=== PATIENT | male | born 1965 ===

== ENCOUNTER 2017-01-18 14:50 | Emergency (ER) | payer SELFPAY ==
[2017-01-18 14:51] VITALS: BMI 27.4
[2017-01-18 15:06] VITALS: BP 168/100; PULSE 99; RESP 20; TEMP 98.1; O2SAT 99
[2017-01-18] MEDS ORDERED: Oxycodone/Acetaminophen 5/325 mg Tab PO STA (17:31)
--- NOTE | 2017-01-18 17:31 | C.PDOC ---
History Of Present Illness 51 year old male, with a past surgical history for Appendicitis, presents to the ED with complaints of left inguinal pain for one week, that has worsened today which prompted visit. Patient reports he stands and does heavy lifting often for work. He notes pain radiates down his left leg and to his testicle. Patient denies history of kidney stones, fever, chills, dysuria, or hematuria. Time Seen by Provider: 01/18/17 17:11 Chief Complaint (Nursing): Abdominal Pain History Per: Patient History/Exam Limitations: no limitations Onset/Duration Of Symptoms: Days (1 week), Worse Since (this morning ) Current Symptoms Are (Timing): Still Present Quality Of Discomfort: "Pain" Associated Symptoms: denies: Fever, Chills, Nausea, Vomiting, Back Pain Alleviating Factors: None Recent travel outside of the [place]: No Past Medical History Reviewed: Historical Data, Nursing Documentation, Vital Signs Vital Signs: Last Vital Signs Temp 98.1 F 01/18/17 15:03 Pulse 99 H 01/18/17 15:03 Resp 20 01/18/17 15:03 BP 168/100 H 01/18/17 15:03 Pulse Ox 99 01/18/17 17:31 - Medical History PMH: HTN, Hyperlipidemia Surgical History: Appendectomy Family History: States: Unknown Family Hx - Social History Hx Alcohol Use: Yes Hx Substance Use: No - Immunization History Hx Tetanus Toxoid Vaccination: No Hx Influenza Vaccination: No Hx Pneumococcal Vaccination: No Review Of Systems Constitutional: Negative for: Fever, Chills Cardiovascular: Negative for: Chest Pain, Palpitations Respiratory: Negative for: Cough, Shortness of Breath Gastrointestinal: Negative for: Nausea, Vomiting, Abdominal Pain Genitourinary: Positive for: Other (left inguinal pain radiating to testicle and down left leg ). Negative for: Dysuria, Hematuria Physical Exam - Physical Exam Appears: Non-toxic, No Acute Distress Skin: Warm, Dry Head: Atraumatic, Normacephalic Eye(s): bilateral: Normal Inspection, PERRL, EOMI Oral Mucosa: Moist Neck: Supple Cardiovascular: Rhythm Regular, No Murmur Respiratory: No Rales, No Rhonchi, No Wheezing, Other (clear to auscultation bilaterally ) Gastrointestinal/Abdominal: Soft, No Tenderness, No Distention, No Guarding, No Rebound Male Genital: Normal Inspection, No Testicular Swelling, No Inguinal Swelling, Other (small reducible left inguinal hernia is palpable with localized tenderness ) Extremity: Normal ROM, No Tenderness Neurological/Psych: Oriented x3 ED Course And Treatment O2 Sat by Pulse Oximetry: 99 (RA) Progress Note: Patient was given Motrin and Percocet. Disposition Counseled Patient/Family Regarding: Diagnosis, Need For Followup, Rx Given - Disposition Referrals: [facility] [Outside] [facility] [Outside] Disposition: HOME/ ROUTINE Disposition Time: 17:30 Condition: GOOD Prescriptions: Acetaminophen/Codeine [Tylenol/Codeine 300 MG/30 MG] 2 tab PO Q6H #20 tab Ibuprofen [Motrin] 600 mg PO Q6 #30 tab Instructions: Inguinal Hernia (ED) Forms: [facility] (Syriac), Work Excuse Print Language: GREEK - Clinical Impression Clinical Impression: Groin pain, Inguinal hernia - Scribe Statement The provider has reviewed the documentation as recorded by the Scribsaman Silva All medical record entries made by the Scribe were at my direction and personally dictated by me. I have reviewed the chart and agree that the record accurately reflects my personal performance of the history, physical exam, medical decision making, and the department course for this patient. I have also personally directed, reviewed, and agree with the discharge instructions and disposition.
[2017-01-18] MEDS ORDERED: Oxycodone/Acetaminophen 5/325 mg Tab ONE (17:44)
== END 2017-01-18 18:05 | disposition home or self-care (01) ==
LOC: C.ER 14:50
DX: K40.90 Unilateral inguinal hernia, without obstruction or gangrene, not specified as recurrent (principal); R10.30 Lower abdominal pain, unspecified

== ENCOUNTER 2017-05-17 08:49 | Day surgery (SDC) | payer OTHER ==
[2017-05-10 08:36] VITALS: BMI 25.7
[2017-05-17] MEDS ORDERED: Midazolam 2 MG/2 ML VIAL ONE (10:51)
[2017-05-17] MEDS ORDERED: Propofol 10 mg/ml Inj (20 ML) ONE (10:52)
[2017-05-17] MEDS ORDERED: Phenylephrine 10 mg/ml Inj ONE (10:53)
[2017-05-17] MEDS ORDERED: cefOXitin IV 2 gm in Dextrose 2 GM/50 ML BAG IVPB ONE (10:57)
[2017-05-17] MEDS ORDERED: ceFAZolin IV 2 gm in Dextrose 2 GM/50 ML BAG IVPB ONE (11:03)
[2017-05-17] MEDS ORDERED: Bupivacaine HCl 0.25% PF (10 ml) Inj ONE (11:07)
[2017-05-17] MEDS ORDERED: Lidocaine/Epinephrine 1% 1:100000 10 ML IJ ONE (11:08)
[2017-05-17] MEDS ORDERED: Neostigmine Methylsulfate 3mg/3ml Syringe IV ONE (12:49)
--- NOTE | 2017-05-17 13:17 | PCM.SURG1 ---
Surgeon's Initial Post Op Note - Surgeon's Notes Surgeon: Myah Floor Representative: PGY4, Nadir MS3 Type of Anesthesia: General Endo, Local Pre-Operative Diagnosis: L inguinal Hernia Operative Findings: see op note Post-Operative Diagnosis: Direct L inguinal Hernia Operation Performed: Laparoscopic L inguinal Hernia with mesh Specimen/Specimens Removed: N/A Estimated Blood Loss: EBL {In ML}: 10 Blood Products Given: N/A Drains Used: No Drains Post-Op Condition: Good Date of Surgery/Procedure: 05/17/17 Time of Surgery/Procedure: 11:00
[2017-05-17] MEDS ORDERED: Oxycodone/Acetaminophen 5/325 mg Tab PO ONE (13:30)
[2017-05-17] MEDS: HYDROmorphone 0.5 mg/0.5 ml ISec IVP PRN ×2 (13:35→14:48)
[2017-05-17] MEDS ORDERED: HYDROmorphone 1 mg/ml ISec ONE (14:50)
[2017-05-17 15:01] VITALS: RESP 16
[2017-05-17 16:25] VITALS: TEMP 97.3
[2017-05-17 17:21] VITALS: BP 146/83; PULSE 109; O2SAT 96
--- NOTE | 2017-05-18 07:06 | OP ---
PROCEDURE DATE: 05/17/2017. PREOPERATIVE DIAGNOSIS: Left inguinal hernia. POSTOPERATIVE DIAGNOSIS: Left direct inguinal hernia. PROCEDURE DONE: Laparoscopic left direct inguinal hernia repair with mesh. SURGEON: Campbell Glasgow MD. FIRE SPRINKLER INSPECTOR: Gil Padron, PGY-4 resident. TYPE OF ANESTHESIA: General endotracheal tube anesthesia. ESTIMATED BLOOD LOSS: Around 10 mL. DRAINS: None. PATHOLOGY: None. COMPLICATIONS: None. INTRAOPERATIVE FINDINGS: The patient with left direct inguinal hernia. DESCRIPTION OF PROCEDURE: On intraoperative steps, this 51-year-old male was diagnosed with left inguinal hernia. The patient was consented for the laparoscopic left inguinal hernia repair with mesh, brought to the OR, placed supine on the operating table. After induction of the anesthesia, the abdomen was prepped and draped in usual sterile fashion. The Bush catheter was placed and the infraumbilical transverse incision was made after incising the skin and subcutaneous tissue and the anterior rectus sheath, the retrorectus dissection was done. The balloon Spacemaker was placed and the balloon was inflated to do the preperitoneal dissection. The Pneumo was created into the preperitoneal space and another two, 5-mm port was placed in the suprapubic region as well as in between the suprapubic and umbilical port site. Now, the grasper and dissector was introduced, and first medial dissection was done in space of Retzius laterally to the lateral abdominal wall and the peritoneal sac was identified. The patient had a direct hernia and the empty sac was also dissected free and hernial content was reduced back. Now inferior peritoneal dissection was done up to the vas deferens as well as the pelvic ring and the empty sac was everted and it was tacked with a tacker and left anatomical mesh was placed. After proper placement of the left anatomical mesh, the Pneumo was deflated and umbilical port as well as two 5-mm port was taken out and umbilical port site was closed in 2 layers, the fascia with 0 Vicryl, subcu with 2-0 Vicryl, skin with 4-0 Monocryl and the 5-mm port was closed with 4-0 Monocryl and dry sterile dressing was applied. The patient tolerated the procedure well. Count of the instruments and gauze was correct. There was no apparent complication. Campbell Glasgow MD
== END 2017-05-17 17:10 | disposition home or self-care (01) ==
LOC: C.SDS 08:49
PROVIDERS: ATTEND Surgery Surgical Critical Care
DX: K40.90 Unilateral inguinal hernia, without obstruction or gangrene, not specified as recurrent (principal); I10 Essential (primary) hypertension
CPT/HCPCS: 49650; J0690; J1170; J2250; J2370; J2405; J2704; J2710; J3010

== ENCOUNTER 2018-01-21 20:05 | Emergency (ER) | payer OTHER ==
[2018-01-21 20:05] VITALS: BMI 25.7
--- NOTE | 2018-01-21 20:14 | C.PDOC ---
History Of Present Illness 52 y/o male presents to the ED complaining of a generalized headache and SOB that developed today prior to arrival. Patient states the shortness of breath has now resolved, but the headache is persistent. After symptoms began, patient noted his blood pressure was elevated at home, prompting him to come to the ED. Patient reports PMHx of hypertension, and ran out of Amlodipine 10mg 1 month ago. He has been taking his other medication, Losartan, with good compliance. Otherwise he denies any chest pain, dizziness, visual changes, numbness, focal weakness, slurred speech, fevers, chills, sweats, neck stiffness, or URI symptoms. Additionally patient complains of left testicular pain ongoing for the past few days. Of note, he previously had a hernia repair on the left. He denies any associated constipation, diarrhea, penile discharge, rash, or hx of STDs. Patient has no PMD and states he was prescribed the Amlodipine by his surgeon. Time Seen by Provider: 01/21/18 20:13 Chief Complaint (Nursing): High Blood Pressure History Per: Patient, Clinic Specialist (Fijian interpretation via patient's son) History/Exam Limitations: no limitations Onset/Duration Of Symptoms: Hrs Current Symptoms Are (Timing): Still Present Associated Symptoms: Headache Exacerbating Factor(s): Pos: Recently Missed Doses Of Medication Past Medical History Reviewed: Historical Data, Nursing Documentation, Vital Signs Vital Signs: Last Vital Signs Temp 98 F 01/21/18 20:09 Pulse 88 01/21/18 20:09 Resp 20 01/21/18 20:09 BP 196/111 H 01/21/18 20:09 Pulse Ox 98 01/21/18 20:09 - Medical History PMH: HTN, Hyperlipidemia Surgical History: Appendectomy Family History: States: Unknown Family Hx - Social History Hx Alcohol Use: Yes Hx Substance Use: No - Immunization History Hx Tetanus Toxoid Vaccination: No Hx Influenza Vaccination: No Hx Pneumococcal Vaccination: No Review Of Systems Constitutional: Negative for: Fever, Chills, Sweats Eyes: Negative for: Vision Change Cardiovascular: Negative for: Chest Pain Respiratory: Positive for: Shortness of Breath (now resolved). Negative for: Cough Gastrointestinal: Negative for: Nausea, Vomiting Genitourinary: Positive for: Other (Left testicular pain). Negative for: Dysu angeli, Frequency, Hematuria, Penile Discharge Skin: Negative for: Rash Neurological: Positive for: Headache. Negative for: Weakness, Numbness, Change in Speech, Dizziness Physical Exam - Physical Exam Appears: Non-toxic, No Acute Distress Skin: Warm, Dry Head: Normacephalic Eye(s): bilateral: Normal Inspection, PERRL, EOMI Oral Mucosa: Moist Neck: Trachea Midline, Supple, Other (No meningeal signs- negative kernig's and brudzinskis) Chest: Symmetrical Cardiovascular: Rhythm Regular, Other (No rub) Respiratory: No Rales, No Rhonchi, No Wheezing Gastrointestinal/Abdominal: Soft, No Tenderness, No Distention Back: Normal Inspection, No CVA Tenderness Male Genital: Normal Inspection, No Testicular Tenderness, No Testicular Swelling, No Inguinal Tenderness, No Inguinal Swelling, No Scrotal Swelling Extremity: Bilateral: Normal Color And Temperature Pulses: Left Dorsalis Pedis: Normal, Right Dorsalis Pedis: Normal Neurological/Psych: Oriented x3, Normal Speech, Normal Cognition, Normal Cranial Nerves, No Cerebellar Signs, Normal Motor, Normal Sensation Gait: Steady Extremity: Right: No Drift, Left: No Drift, Upper: No Drift, Lower: No Drift ED Course And Treatment - Laboratory Results Result Diagrams: 01/21/18 21:02 01/21/18 21:02 O2 Sat by Pulse Oximetry: 98 (RA) Pulse Ox Interpretation: Normal Medical Decision Making Medical Decision Making: Impression: 52 y/o M presents with headache, SOB (now resolved), and left testicular pain. XIE not worst of life, not sudden in onset, without any FND. Testicular pain w/ out rash / penile discharge or pain w/ defecation. No trauma. Given pt ran out of HTN meds, likely HTN. Will give home meds and seek labs and imaging. Plan: Blood work Chest x-ray CT Head Testicular US Amlodipine 10 mg PO labs and imaging unremarkable CT unremarkable EKG unremarkable US unremarkable Pt endorses improvement in symptoms, now fully resolved. Neuro exam remains unremarkable and testicular pain resolved. clear for d/c home: given return indications and followup Disposition - Disposition Referrals: [facility] [Outside] Nemo Anne MD [Staff Provider] - Disposition: HOME/ ROUTINE Disposition Time: 22:59 Condition: GOOD Additional Instructions: KADEN HUNTER, thank you for letting us take care of you today. Your provider was Abdoulaye Alvarado and you were treated for SOB. The emergency medical care you received today was directed at your acute symptoms. If you were prescribed any medication, please fill it and take as directed. It may take several days for your symptoms to resolve. Return to the Emergency Department if your symptoms worsen, do not improve, or if you have any other problems. Please contact your doctor or call one of the physicians/clinics you have been referred to that are listed on the Patient Visit Information form that is included in your discharge packet. Bring any paperwork you were given at discharge with you along with any medications you are taking to your follow up visit. Our treatment cannot replace ongoing medical care by a primary care provider outside of the emergency department. Thank you for allowing the [facility] team to be part of your care today. If you had an X-Ray or CT scan: A Radiologist will review the ED reading if any change in treatment is needed we will contact you. If you had a blood, urine, or wound culture: It will take several days for the results, if any change in treatment is needed we will contact you. If you had an STI test: It will take 48 hours for the results. Please call after 1 week if you have not heard back. Prescriptions: RX: amLODIPine [Norvasc] 5 mg PO QAM 5 Days #5 tab Instructions: DASH Diet, High Blood Pressure (DC), Medicines for High Blood Pressure Forms: [employer] (Namibian) Print Language: TONGAN - Clinical Impression Clinical Impression: Hypertensive urgency - Scribe Statement The provider has reviewed the documentation as recorded by the Arnol Bermeo Provider Attestation: All medical record entries made by the Arnol were at my direction and personally dictated by me. I have reviewed the chart and agree that the record accurately reflects my personal performance of the history, physical exam, medical decision making, and the department course for this patient. I have also personally directed, reviewed, and agree with the discharge instructions and disposition.
[2018-01-21 21:06] LABS: BASO % 0.3 % (0.0-2.0); HEMOGLOBIN 13.5 g/dL (12.0-18.0); LYMPH # 1.6 K/uL (1.0-4.3); LYMPH % 31.9 % (20.0-40.0); MEAN CORPUSCULAR HGB CONC 33.3 g/dL (33.0-37.0); MEAN PLATELET VOLUME 9.2 fL (7.2-11.7); MONO # 0.4 K/uL (0.0-0.8); MONO % 8.7 % (0.0-10.0); NEUT # 2.8 K/uL (1.8-7.0); NEUT % 58.1 % (50.0-75.0); RBC 4.65 Mil/uL (4.40-5.90); RED CELL DISTRIBUTION WIDTH 13.4 % (11.5-14.5); WHITE BLOOD COUNT 4.9 K/uL (4.8-10.8)
[2018-01-21 22:01] LABS: ALB/GLOB RATIO 1.5 (1.0-2.1); ALBUMIN 4.3 g/dL (3.5-5.0); ALT/SGPT 40 U/L (21-72); AST/SGOT 39 U/L (17-59); BLOOD UREA NITROGEN 11 mg/dL (9-20); CALCIUM 8.9 mg/dl (8.6-10.4); GFR NON-AFRICAN AMERICAN > 60
[2018-01-21 22:10] VITALS: BP 164/91; PULSE 63; RESP 16; TEMP 99.1
[2018-01-21 23:00] VITALS: O2SAT 98
--- NOTE | 2018-01-22 12:50 | RAD ---
Date of service: 01/21/2018 HISTORY: sob COMPARISON: Chest radiographs 05/10/2017. TECHNIQUE: Chest PA and lateral FINDINGS: LUNGS: No active pulmonary disease. PLEURA: No significant pleural effusion identified. No pneumothorax apparent. CARDIOVASCULAR: No aortic atherosclerotic calcification present. Normal cardiac size. No pulmonary vascular congestion. OSSEOUS STRUCTURES: No significant abnormalities. VISUALIZED UPPER ABDOMEN: Normal. OTHER FINDINGS: None. IMPRESSION: No interval acute cardiopulmonary disease appreciated.
--- NOTE | 2018-01-22 14:41 | CT ---
Date of service: 01/21/2018 PROCEDURE: CT HEAD WITHOUT CONTRAST. HISTORY: alonso, htn COMPARISON: None available. TECHNIQUE: Axial computed tomography images were obtained through the head/brain without intravenous contrast. Radiation dose: Total exam DLP = 1217.87 mGy-cm. This CT exam was performed using one or more of the following dose reduction techniques: Automated exposure control, adjustment of the mA and/or kV according to patient size, and/or use of iterative reconstruction technique. FINDINGS: HEMORRHAGE: No intracranial hemorrhage. BRAIN: Good corticomedullary differentiation is seen. There is trace scattered subcortical white matter lucency compatible with chronic microangiopathy. No suspicious extra-axial fluid collection is identified and the midline brain anatomy appears grossly nonfocal as imaged. There is no mass effect throughout. VENTRICLES: Unremarkable. No hydrocephalus. CALVARIUM: Unremarkable. PARANASAL SINUSES: Unremarkable as visualized. No significant inflammatory changes. MASTOID AIR CELLS: Unremarkable as visualized. No inflammatory changes. OTHER FINDINGS: None. IMPRESSION: No acute intracranial findings by standard CT criteria. Trace chronic microangiopathy is identified in this patient with the brain otherwise unremarkable appearing. Preliminary report provided by [facility] 01/21/2018.
--- NOTE | 2018-01-22 18:31 | US ---
Date of service: 01/21/2018 HISTORY: L testicle pain TECHNIQUE: Realtime sonography through the scrotum with color and doppler flow. COMPARISON: None Available. FINDINGS: RIGHT TESTICLE: Measures 4.3 x 1.9 x 3.1 cm. Limited microlithiasis is identified with normal intra testicular arterial blood flow encountered. No dominant cyst or solid mass identified. RIGHT EPIDIDYMIS: Epididymal head measures 0.7 x 1.0 cm. Two tiny cysts in the epididymal head with remainder unremarkable. LEFT TESTICLE: Measures 4.4 x 1.9 x 2.8 cm. Limited microlithiasis is identified with normal intra testicular arterial blood flow encountered. No dominant cystic or solid mass identified. LEFT EPIDIDYMIS: Epididymal head measures 1.1 x 0.8 cm. Grossly unremarkable appearance with normal flow. HYDROCELE: Minimal right hydrocele. VARICOCELE: Small left varicocele noted. OTHER FINDINGS: Mural thickening of the scrotal sac is appreciate diffusely. IMPRESSION: Mural thickening the scrotal sac is appreciate diffusely. No evidence to suggest testicular torsion bilaterally. No dominant cyst or solid testicular mass appreciated although mild microlithiasis is appreciated bilaterally. Right epididymal cysts are identified with the left epididymis unremarkable. Minimal right hydrocele identified. Small left varicocele Concordant preliminary report from [facility], 01/21/2018.
== END 2018-01-21 23:09 | disposition home or self-care (01) ==
LOC: C.ER 20:05
DX: I16.0 Hypertensive urgency (principal)